=== PATIENT | female | born 2000 | race African-American/Black ===

== ENCOUNTER 2023-05-21 23:11 | Emergency (ER) | payer OTHER ==
[2023-05-21 23:16] VITALS: BP 116/80; PULSE 82; RESP 18; TEMP 97.7; BMI 19.8
[2023-05-22] MEDS ORDERED: ACETAMINOPHEN 500 MG TABLET (FP) PO ONE (00:01)
[2023-05-22] MEDS ORDERED: ACETAMINOPHEN 325 MG TABLET (FP) ONE (00:09)
== END 2023-05-22 00:41 | disposition home or self-care (01) ==
LOC: JER 23:11
DX: R22.1 Localized swelling, mass and lump, neck (principal); R59.0 Localized enlarged lymph nodes; M54.2 Cervicalgia; K08.89 Other specified disorders of teeth and supporting structures
CPT/HCPCS: 87651; 99283-25